=== PATIENT | female | born 1970 | race African-American/Black ===

== ENCOUNTER 2022-02-24 22:22 | Emergency (ER) | payer SELFPAY ==
[~2022-02-24] VITALS: Ht 167.6 cm; Wt 161.2 kg
[~2022-02-24 22:22] MED LIST: RANITIDINE
[2022-02-25 00:06] LABS: BASOPHILS % 1.2 % (0.0-2.0); EOSINOPHILS % 3.5 % (0.0-5.0); HEMOGLOBIN. 10.6 g/dL (12.0-16.0); LYMPHOCYTES % 28.8 % (20.0-50.0); MEAN CORPUSCULAR HEMOGLOBIN 18.1 pg (28.0-32.0); MEAN CORPUSCULAR VOLUME 58.1 fL (81.0-99.0); MEAN PLATELET VOLUME 8.4 fl (7.4-10.4); MONOCYTES % 5.6 % (2.0-8.0); NEUTROPHILS % 60.9 % (40.0-76.0); PLATELET 351 x1000/uL (130-400); RED BLOOD CELL COUNT 5.85 mill/uL (4.2-5.4); RED CELL DISTRIBUTION WIDTH 22.8 % (11.6-14.6)
[2022-02-25 00:12] LABS: CHLORIDE 102 mEq/L (98-107)
[2022-02-25 02:43] VITALS: BP 129/94
[2022-02-25 04:42] LABS: PLATELET ESTIMATE NORMAL
== END 2022-02-25 02:45 | disposition home or self-care (01) ==
LOC: ER 22:22
DX: R00.2 Palpitations (principal); R42 Dizziness and giddiness; R07.89 Other chest pain; F41.9 Anxiety disorder, unspecified
CPT/HCPCS: 36415; 71045; 80053; 83880; 84484; 85025; 93005; 99285